=== PATIENT | male | born 1980 | race Caucasian/White ===

== ENCOUNTER 2018-01-19 09:23 | Emergency (ER) | payer MEDICARE, OTHER ==
[2018-01-19 10:25] VITALS: BP 108/62
--- NOTE | 2018-01-19 10:49 | UC ---
Shoulder Pain HPI - HPI Summary HPI Summary: 37 yr old male with shoulder pain. Left shoulder surgery 7 years ago. Was getting up from couch 1 week ago and felt some pain on top of left shoulder and towards left lower neck. Was getting better 2 days ago but has worsened again today. Unsure of injury or aggravated mechanism .Denies chest pain or SOB. Has in the past had chronic pain with spinal stim but no longer was on numerous meds but no longer and having neck spasms. no rafiating pain . no weakness in the arms. has had left neck and rtap pain / spasms with movement - History of Current Complaint Chief Complaint: UCUpperExtremity Stated Complaint: LEFT SHOULDER/NECK PAIN Time Seen by Provider: 01/19/18 10:46 Hx Obtained From: Patient Onset/Duration: Gradual Onset Timing: Intermittent Episode Lasting Severity Initially: Mild Severity Currently: Moderate Pain Intensity: 7 Aggravating Factor(s): Movement, Lifting Alleviating Factor(s): Rest Associated Signs And Symptoms: Negative: Numbness/Tingling Related History: Similar Episode/Dx As - Allergies/Home Medications Allergies/Adverse Reactions: Allergies Allergy/AdvReac Type Severity Reaction Status Date / Time aspirin AdvReac Abdominal Verified 01/19/18 10:07 Pain codeine AdvReac Abdominal Verified 01/19/18 10:07 Pain Home Medications: Home Medications Acetaminophen [Tylenol Extra Strength] 1,000 mg PO ONCE 01/19/18 [History Confirmed 01/19/18] PMH/Surg Hx/FS Hx/Imm Hx Previously Healthy: Yes - Surgical History Surgical History: Yes Surgery Procedure, Year, and Place: L4 L5 S1 Fusion and [place], 2014, [facility] ; Left Shoulder Bursitis and Spur, 2011, [place] - Family History Known Family History: Positive: Other - [place] [facility] chickenpox - Social History Occupation: Disabled Lives: With Family Alcohol Use: None Substance Use Type: None Substance Use Comment - Amount & Last Used: Oxycodone 10mg TID Smoking Status (MU): Current Some Day Smoker Type: Cigarettes Amount Used/How Often: socially Length of Time of Smoking/Using Tobacco: 21 Years Have You Smoked in the Last Year: Yes When Did the Patient Quit Smoking/Using Tobacco: ~07/24/15 - Immunization History Most Recent Influenza Vaccination: December 2015 Review of Systems Motor: Decreased ROM Musculoskeletal: Arthralgia, Decreased ROM Is Patient Immunocompromised?: No All Other Systems Reviewed And Are Negative: Yes Physical Exam Triage Information Reviewed: Yes Appearance: Well-Appearing, No Pain Distress, Well-Nourished Vital Signs: Initial Vital Signs Temp 98.2 F 01/19/18 10:16 Pulse 78 01/19/18 10:16 Resp 15 01/19/18 10:16 BP 108/62 01/19/18 10:16 Pulse Ox 99 01/19/18 10:16 Vital Signs Reviewed: Yes ENT: Positive: Normal ENT inspection Neck exam: Normal Respiratory Exam: Normal Cardiovascular Exam: Normal Musculoskeletal Exam: Normal Musculoskeletal: Positive: Strength Intact, ROM Intact, No Edema Neurological Exam: Normal Neurological: Positive: Alert, Abnormal Muscle Tone - hypertonicity left trap, Other: - left trapezius tenderness and left SCM tenderness. no C spine tenderness. No step offs. No SP tenderness. sensation intact. normal elbow exam. no significant tenderness in the anterior shoulder but some tenderness in the scapulothoracic area b/l L>R Psychological Exam: Normal Skin Exam: Normal Shoulder Course/Dx - Course Course Of Treatment: acute on chronic neck/shoulder pain with spasms --- treat with NSAIDs, prm muscle relaxer, return to ortho prn - Differential Dx/Diagnosis Differential Diagnosis/HQI/PQRI: Arthritis, Rotator Cuff Injury, Sprain, Strain , Tendonitis Provider Diagnoses: muscle spasms. chronic left shoulder and neck pain Discharge - Sign-Out/Discharge Documenting (check all that apply): Patient Departure All imaging exams completed and their final reports reviewed: No Studies - Discharge Plan Condition: Good Disposition: HOME Prescriptions: Ibuprofen TAB* [Motrin TAB* 600 MG] 600 mg PO Q8H PRN #30 tab PRN Reason: Pain tiZANidine TAB* [Zanaflex TAB*] 2 mg PO TID PRN #20 tab PRN Reason: Spasms Patient Education Materials: Muscle Spasm (ED) Referrals: Dipak Pryor MD [Primary Care Provider] - 4 Days (and follow up with Ortho or Pain management if needed ) - Billing Disposition and Condition Condition: GOOD Disposition: Home
== END 2018-01-19 11:42 | disposition home or self-care (01) ==
LOC: UCCORT 09:23
DX: M62.838 Other muscle spasm (principal); G89.29 Other chronic pain; M25.512 Pain in left shoulder; M54.2 Cervicalgia; Z88.5 Allergy status to narcotic agent; F17.210 Nicotine dependence, cigarettes, uncomplicated
CPT/HCPCS: 99212; G0463